=== PATIENT | female | born 1955 | race Two or more races ===

== ENCOUNTER 2017-06-28 20:32 | Emergency (ER) | payer SELFPAY ==
[~2017-06-28] VITALS: Ht 160 cm; Wt 68.2 kg
[2017-06-28 21:49] LABS: CLARITY URINE CLOUDY (CLEAR); COLOR URINE YELLOW (YELLOW); KETONES URINE NEGATIVE (NEGATIVE); LEUKOCYTE ESTERASE URINE 3+ (NEGATIVE); NITRITE URINE NEGATIVE (NEGATIVE); OCCULT BLOOD URINE TRACE (NEGATIVE); PH URINE 7.5 (4.5-8.0); PROTEIN URINE TRACE (NEGATIVE); SPECIFIC GRAVITY URINE 1.012 (1.005-1.030)
[2017-06-28 22:06] LABS: BASOPHILS % 0.6 % (0.0-2.0); EOSINOPHILS % 2.9 % (0.0-5.0); HEMATOCRIT. 39.7 % (36.0-48.0); HEMOGLOBIN. 13.9 g/dL (12.0-16.0); LYMPHOCYTES % 17.6 % (20.0-50.0); MEAN CORPUSCULAR HEMOGLOBIN 30.4 pg (28.0-32.0); MEAN CORPUSCULAR VOLUME 87.1 fL (81.0-99.0); MEAN PLATELET VOLUME 8.4 fl (7.4-10.4); MONOCYTES % 7.2 % (2.0-8.0); NEUTROPHILS % 71.7 % (40.0-76.0); PLATELET 261 x1000/uL (130-400); PROTHROMBIN TIME 10.9 sec (9.4-11.6); RED BLOOD CELL COUNT 4.56 mill/uL (4.2-5.4); RED CELL DISTRIBUTION WIDTH 13.5 % (11.6-14.6)
[2017-06-28 22:07] LABS: CHLORIDE 107 mEq/L (98-107)
[2017-06-28 23:56] VITALS: BP 159/94
== END 2017-06-29 00:40 | disposition home or self-care (01) ==
LOC: ER 20:32
DX: F41.9 Anxiety disorder, unspecified (principal); I10 Essential (primary) hypertension; E11.9 Type 2 diabetes mellitus without complications
CPT/HCPCS: 36415; 71045; 80053; 81003; 83880; 84484; 85025; 85610; 87086; 93005; 99285

== ENCOUNTER 2023-03-16 19:58 | Emergency (ER) | payer MEDICARE ==
[~2023-03-16] VITALS: Ht 157.5 cm; Wt 60.0 kg
[2023-03-16 20:11] VITALS: BP 147/87; PULSE 63; RESP 14; O2SAT 100
[2023-03-16] MEDS ORDERED: ACETAMINOPHEN 325MG TABLET PO STA (22:40)
[2023-03-16] MEDS ORDERED: LIDOCAINE HCL/PF 1% 10 MG/ML 5ML VIAL INFIL ONE ×2 (22:45→23:30)
[2023-03-16] MEDS ORDERED: BACITRACIN ZINC OINT UDPKT TOP ONE (22:45)
[2023-03-16 23:22] VITALS: TEMP 98
[2023-03-17] MEDS ORDERED: ACET-2708 MT (00:34)
== END 2023-03-17 01:26 | disposition home or self-care (01) ==
LOC: ER 19:58
DX: S51.811A Laceration without foreign body of right forearm, initial encounter (principal); W18.39XA Other fall on same level, initial encounter; Y93.89 Activity, other specified; Y92.89 Other specified places as the place of occurrence of the external cause; Y99.8 Other external cause status
CPT/HCPCS: 99283; 73090; 12005; J3490

== ENCOUNTER 2023-04-05 19:05 | Emergency (ER) | payer MEDICARE ==
[~2023-04-05] VITALS: Ht 149.9 cm; Wt 55.1 kg
[~2023-04-05 19:05] MED LIST: ACET-2708 MT
[2023-04-05 20:42] VITALS: BP 142/54; PULSE 62; RESP 15; TEMP 97.9; O2SAT 99
[2023-04-05] MEDS ORDERED: BO1 TP (22:55)
[2023-04-05] MEDS ORDERED: CEPH500C2 MT ×2 (22:55)
== END 2023-04-05 23:29 | disposition home or self-care (01) ==
LOC: ER 19:48
DX: S51.811D Laceration without foreign body of right forearm, subsequent encounter (principal); E11.9 Type 2 diabetes mellitus without complications; I10 Essential (primary) hypertension; X58.XXXD Exposure to other specified factors, subsequent encounter
CPT/HCPCS: 99281; 99283